=== PATIENT | male | born 1945 | race Caucasian/White ===

== ENCOUNTER 2016-10-21 08:31 | Outpatient (CLI) | payer MEDICARE, OTHER ==
--- NOTE | 2016-10-21 12:26 | MRI Report ---
EXAM: LEFT KNEE MRI WITHOUT CONTRAST EXAM DATE: 10/21/2016 09:44 AM. CLINICAL HISTORY: 2 months ago patient slipped going down stairs twisted left knee. COMPARISON: None. TECHNIQUE: Multiplanar, multisequence T1-weighted and fluid-sensitive sequences of the knee without c ontrast. Other: None. FINDINGS: Bones: There is marked marrow edema of the medial femoral and tibial condyles. There is subchondral c yst formation in the femoral trochlea.. Articular Cartilage: There is severe hyaline cartilage thinning in the medial compartment with region s of denuded bone. There is moderate thinning of the hyaline cartilage of the femoral trochlea. There is mild thinning of the lateral compartment cartilage. Medial Meniscus: There is a radial tear of the posterior root attachment. There is moderate extrusion . Lateral Meniscus: The lateral meniscus is intact. Cruciate Ligaments: The anterior and posterior cruciate ligaments are intact. Collateral Ligaments: The medial collateral and lateral collateral ligamentous structures are intact. Tendons: The quadriceps, patellar, semimembranosus, and popliteus tendons are unremarkable. Musculature: No edema or fatty atrophy. Other: Moderate-sized joint effusion.. No popliteal cyst. No loose bodies. The medial and lateral re tinacula are intact. The subcutaneous tissues and fat pads are unremarkable. IMPRESSION: 1. Radial tear of the posterior root attachment of the medial meniscus with medial extrusion. 2. Severe osteoarthritis of the medial compartment. 3. Mild lateral and patellofemoral compartment osteoarthritis 4. Moderate-sized joint effusion. [facility] MUSCULOSKELETAL RADIOLOGY SECTION Referring Provider Line: [phone] SITE ID: [id number]
== END 2016-10-21 08:32 | disposition home or self-care (01) ==
LOC: DI 08:31
PROVIDERS: ATTEND Family Medicine
DX: M25.562 Pain in left knee (principal); S83.242A Other tear of medial meniscus, current injury, left knee, initial encounter; M25.462 Effusion, left knee; M17.12 Unilateral primary osteoarthritis, left knee

== ENCOUNTER 2018-07-05 08:00 | Outpatient (CLI) | payer MEDICARE ==
[2018-07-05 12:27] LABS: BASOPHILS % (AUTO) 0.6 %; EOSINOPHILS # (AUTO) 0.2 10^3/uL (0.0-0.7); EOSINOPHILS % (AUTO) 3.2 %; HGB - HEMOGLOBIN 14.5 g/dL (14.0-18.0); LYMPHOCYTES % (AUTO) 17.9 %; MEAN CORPUSCULAR HEMOGLOBIN 32.3 pg (27.0-31.0); MEAN CORPUSCULAR VOLUME 94.9 fL (80.0-94.0); MEAN PLATELET VOLUME 9.5 fL (7.4-11.4); MONOCYTES # (AUTO) 0.7 10^3/uL (0.0-1.0); MONOCYTES % (AUTO) 12.1 %; NEUTROPHILS # (AUTO) 3.8 10^3/uL (1.5-6.6); NEUTROPHILS % (AUTO) 66.2 %; PLT - PLATELET COUNT 157 10^3/uL (130-450); RED CELL DISTRIBUTION WIDTH 13.5 % (12.0-15.0); WHITE BLOOD COUNT 5.8 x10^3/uL (4.8-10.8)
[2018-07-05 13:11] LABS: HB2 TOTAL 15.7 g/dL; HEMOGLOBIN A1C 0.65 g/dL; HEMOGLOBIN A1C % 5.9 % (4.6-6.2)
[2018-07-05 13:13] LABS: ALBUMIN 4.4 g/dL (3.2-5.5); ALKALINE PHOSPHATASE 56 IU/L (42-121); ALT ALANINE AMINOTRANSFERASE 24 IU/L (10-60); AST ASPARTATE AMINOTRANSFERASE 31 IU/L (10-42); BILIRUBIN,TOTAL 1.3 mg/dL (0.2-1.0); BUN - BLOOD UREA NITROGEN 18 mg/dL (6-20); CALCIUM 8.7 mg/dL (8.5-10.3); CARBON DIOXIDE - CO2 23 mmol/L (21-32); CHLORIDE 106 mmol/L (101-111); CHOL/HDL RATIO 4.3 (<5.0); CHOLESTEROL 175 mg/dL; CREATININE 0.8 mg/dL (0.6-1.2); GFR - MDRD 94 (>89); GLUCOSE 123 mg/dL (70-100); HDL CHOLESTEROL 41 mg/dL; LDL CHOLESTEROL,CALCULATED 116 mg/dL; LDL/HDL RATIO 2.8 (<3.6); SODIUM 137 mmol/L (135-145); TOTAL PROTEIN 6.6 g/dL (6.7-8.2); VLDL CHOLESTEROL 18 mg/dL
[2018-07-05 13:33] LABS: CREATININE,URINE 105.7 mg/dL; MICROALBUM/CREATININE RATIO,UR 8.5 ug/mg (<30.0); MICROALBUMIN,URINE 0.9 mg/dL (0-300.0)
== END 2018-07-05 08:01 | disposition home or self-care (01) ==
LOC: LAB.WCP 08:00
PROVIDERS: ATTEND Family Medicine
DX: E11.9 Type 2 diabetes mellitus without complications (principal); R97.20 Elevated prostate specific antigen [PSA]
CPT/HCPCS: 36415; 80053; 80061; 82043; 82570; 83036; 83721; 84153; 85025

== ENCOUNTER 2018-12-29 12:36 | Outpatient (CLI) | payer MEDICARE ==
[2018-12-29 13:11] LABS: PT - PROTHROMBIN TIME 46.8 secs (9.9-12.6)
[2018-12-29 13:17] LABS: INR 4.5 (0.8-1.2)
== END 2018-12-29 12:37 | disposition home or self-care (01) ==
LOC: LAB 12:36
PROVIDERS: ATTEND Pharmacist Pharmacist Clinician (PhC)/ Clinical Pharmacy Specialist
DX: Z79.01 Long term (current) use of anticoagulants (principal)
CPT/HCPCS: 36415; 85610

== ENCOUNTER 2019-01-17 12:27 | Outpatient (CLI) | payer MEDICARE ==
[2019-01-17 12:51] LABS: INR 3.1 (0.8-1.2); PT - PROTHROMBIN TIME 32.8 secs (9.9-12.6)
== END 2019-01-17 12:28 | disposition home or self-care (01) ==
LOC: LAB 12:27
PROVIDERS: ATTEND Pharmacist Pharmacist Clinician (PhC)/ Clinical Pharmacy Specialist
DX: Z79.01 Long term (current) use of anticoagulants (principal)
CPT/HCPCS: 36415; 85610

== ENCOUNTER 2019-02-07 08:39 | Outpatient (CLI) | payer MEDICARE ==
[2019-02-07 09:32] LABS: INR 3.8 (0.8-1.2)
== END 2019-02-07 08:40 | disposition home or self-care (01) ==
LOC: LAB 08:39
PROVIDERS: ATTEND Pharmacist Pharmacist Clinician (PhC)/ Clinical Pharmacy Specialist
DX: Z79.01 Long term (current) use of anticoagulants (principal)
CPT/HCPCS: 36415; 85610

== ENCOUNTER 2019-02-19 09:53 | Outpatient (CLI) | payer MEDICARE ==
[2019-02-19 10:10] LABS: PT - PROTHROMBIN TIME 21.7 secs (9.9-12.6)
== END 2019-02-19 09:54 | disposition home or self-care (01) ==
LOC: LAB 09:53
PROVIDERS: ATTEND Pharmacist Pharmacist Clinician (PhC)/ Clinical Pharmacy Specialist
DX: Z79.01 Long term (current) use of anticoagulants (principal)
CPT/HCPCS: 36415; 85610

== ENCOUNTER 2019-02-23 10:30 | Outpatient (CLI) | payer MEDICARE ==
[2019-02-23 11:03] LABS: INR 2.6 (0.8-1.2); PT - PROTHROMBIN TIME 28.1 secs (9.9-12.6)
== END 2019-02-23 10:31 | disposition home or self-care (01) ==
LOC: LAB 10:30
PROVIDERS: ATTEND Pharmacist Pharmacist Clinician (PhC)/ Clinical Pharmacy Specialist
DX: Z79.01 Long term (current) use of anticoagulants (principal)
CPT/HCPCS: 36415; 85610

== ENCOUNTER 2019-03-14 09:36 | Outpatient (CLI) | payer MEDICARE ==
[2019-03-14 10:19] LABS: INR 2.2 (0.8-1.2); PT - PROTHROMBIN TIME 23.9 secs (9.9-12.6)
== END 2019-03-14 09:37 | disposition home or self-care (01) ==
LOC: LAB 09:36
PROVIDERS: ATTEND Pharmacist Pharmacist Clinician (PhC)/ Clinical Pharmacy Specialist
DX: Z79.01 Long term (current) use of anticoagulants (principal)
CPT/HCPCS: 36415; 85610

== ENCOUNTER 2019-03-22 15:20 | Outpatient (CLI) | payer MEDICARE ==
[2019-03-22 15:41] LABS: INR 2.7 (0.8-1.2); PT - PROTHROMBIN TIME 28.7 secs (9.9-12.6)
== END 2019-03-22 15:21 | disposition home or self-care (01) ==
LOC: LAB 15:20
PROVIDERS: ATTEND Pharmacist Pharmacist Clinician (PhC)/ Clinical Pharmacy Specialist
DX: Z79.01 Long term (current) use of anticoagulants (principal)
CPT/HCPCS: 36415; 85610

== ENCOUNTER 2019-04-13 08:35 | Outpatient (CLI) | payer MEDICARE ==
[2019-04-13 09:04] LABS: INR 2.8 (0.8-1.2); PT - PROTHROMBIN TIME 30.2 secs (9.9-12.6)
== END 2019-04-13 08:36 | disposition home or self-care (01) ==
LOC: LAB 08:35
PROVIDERS: ATTEND Pharmacist Pharmacist Clinician (PhC)/ Clinical Pharmacy Specialist
DX: Z79.01 Long term (current) use of anticoagulants (principal)
CPT/HCPCS: 36415; 85610

== ENCOUNTER 2019-06-29 10:54 | Outpatient (CLI) | payer MEDICARE ==
[2019-06-29 11:22] LABS: PT - PROTHROMBIN TIME 32.5 secs (9.9-12.6)
== END 2019-06-29 10:55 | disposition home or self-care (01) ==
LOC: LAB 10:54
PROVIDERS: ATTEND Pharmacist
DX: Z79.01 Long term (current) use of anticoagulants (principal)
CPT/HCPCS: 36415; 85610

== ENCOUNTER 2019-08-29 09:25 | Outpatient (CLI) | payer MEDICARE ==
[2019-08-29 09:41] LABS: INR 3.8 (0.8-1.2); PT - PROTHROMBIN TIME 39.8 secs (9.9-12.6)
== END 2019-08-29 09:26 | disposition home or self-care (01) ==
LOC: LAB 09:25
PROVIDERS: ATTEND Pharmacist
DX: Z79.01 Long term (current) use of anticoagulants (principal)
CPT/HCPCS: 36415; 85610

== ENCOUNTER 2019-09-13 08:16 | Outpatient (CLI) | payer MEDICARE ==
[2019-09-13 08:34] LABS: INR 3.4 (0.8-1.2); PT - PROTHROMBIN TIME 35.9 secs (9.9-12.6)
== END 2019-09-13 08:17 | disposition home or self-care (01) ==
LOC: LAB 08:16
PROVIDERS: ATTEND Pharmacist
DX: Z79.01 Long term (current) use of anticoagulants (principal)
CPT/HCPCS: 36415; 85610

== ENCOUNTER 2019-10-05 08:22 | Outpatient (CLI) | payer MEDICARE ==
[2019-10-05 08:46] LABS: BASOPHILS % (AUTO) 0.8 %; EOSINOPHILS # (AUTO) 0.2 10^3/uL (0.0-0.7); EOSINOPHILS % (AUTO) 4.6 %; HGB - HEMOGLOBIN 14.9 g/dL (14.0-18.0); LYMPHOCYTES # (AUTO) 0.9 10^3/uL (1.5-3.5); LYMPHOCYTES % (AUTO) 17.3 %; MEAN CORPUSCULAR HEMOGLOBIN 32.9 pg (27.0-31.0); MEAN CORPUSCULAR HGB CONC 34.7 g/dL (32.0-36.0); MEAN CORPUSCULAR VOLUME 94.9 fL (80.0-94.0); MEAN PLATELET VOLUME 10.2 fL (7.4-11.4); MONOCYTES # (AUTO) 0.6 10^3/uL (0.0-1.0); MONOCYTES % (AUTO) 11.4 %; NEUTROPHILS # (AUTO) 3.5 10^3/uL (1.5-6.6); NEUTROPHILS % (AUTO) 65.5 %; PLT - PLATELET COUNT 156 10^3/uL (130-450); RED BLOOD COUNT 4.53 10^6/uL (4.70-6.10); RED CELL DISTRIBUTION WIDTH 12.6 % (12.0-15.0); WHITE BLOOD COUNT 5.3 x10^3/uL (4.8-10.8)
[2019-10-05 08:55] LABS: CREATININE,URINE 83.9 mg/dL; MICROALBUM/CREATININE RATIO,UR 14.3 ug/mg (<30.0); MICROALBUMIN,URINE 1.2 mg/dL (0-300.0)
[2019-10-05 09:01] LABS: HB2 TOTAL 15.4 g/dL; HEMOGLOBIN A1C 0.59 g/dL; HEMOGLOBIN A1C % 5.7 % (4.6-6.2)
[2019-10-05 09:08] LABS: ALBUMIN 4.7 g/dL (3.2-5.5); ALBUMIN/GLOBULIN RATIO 2.2 (1.0-2.2); ALKALINE PHOSPHATASE 67 IU/L (42-121); ALT ALANINE AMINOTRANSFERASE 30 IU/L (10-60); AST ASPARTATE AMINOTRANSFERASE 46 IU/L (10-42); BILIRUBIN,TOTAL 1.4 mg/dL (0.2-1.0); BUN - BLOOD UREA NITROGEN 14 mg/dL (6-20); CALCIUM 9.3 mg/dL (8.5-10.3); CARBON DIOXIDE - CO2 27 mmol/L (21-32); CHLORIDE 103 mmol/L (101-111); CHOL/HDL RATIO 3.5 (<5.0); CHOLESTEROL 149 mg/dL; CREATININE 0.8 mg/dL (0.6-1.2); GLUCOSE 112 mg/dL (70-100); HDL CHOLESTEROL 42 mg/dL; LDL CHOLESTEROL,CALCULATED 93 mg/dL; LDL/HDL RATIO 2.2 (<3.6); SODIUM 138 mmol/L (135-145); TOTAL PROTEIN 6.8 g/dL (6.7-8.2); VLDL CHOLESTEROL 14 mg/dL
== END 2019-10-05 08:23 | disposition home or self-care (01) ==
LOC: LAB 08:22
PROVIDERS: ATTEND Family Medicine
DX: E11.9 Type 2 diabetes mellitus without complications (principal); E78.5 Hyperlipidemia, unspecified; Z12.5 Encounter for screening for malignant neoplasm of prostate
CPT/HCPCS: 36415; 80053; 80061; 82043; 82570; 83036; 84443; 85025; G0103; 83721; 84153

== ENCOUNTER 2019-10-17 11:11 | Outpatient (CLI) | payer MEDICARE ==
[2019-10-17 11:28] LABS: INR 4.1 (0.8-1.2); PT - PROTHROMBIN TIME 43.2 secs (9.9-12.6)
== END 2019-10-17 11:12 | disposition home or self-care (01) ==
LOC: LAB 11:11
PROVIDERS: ATTEND Pharmacist
DX: Z79.01 Long term (current) use of anticoagulants (principal)
CPT/HCPCS: 36415; 85610

== ENCOUNTER 2019-11-01 08:29 | Outpatient (CLI) | payer MEDICARE ==
[2019-11-01 08:43] LABS: INR 2.2 (0.8-1.2); PT - PROTHROMBIN TIME 23.3 secs (9.9-12.6)
== END 2019-11-01 08:30 | disposition home or self-care (01) ==
LOC: LAB 08:29
PROVIDERS: ATTEND Pharmacist
DX: Z79.01 Long term (current) use of anticoagulants (principal)
CPT/HCPCS: 36415; 85610

== ENCOUNTER 2019-11-20 08:46 | Outpatient (CLI) | payer MEDICARE ==
[2019-11-20 09:34] LABS: INR 3.7 (0.8-1.2); PT - PROTHROMBIN TIME 38.6 secs (9.9-12.6)
== END 2019-11-20 08:47 | disposition home or self-care (01) ==
LOC: LAB 08:46
PROVIDERS: ATTEND Pharmacist
DX: Z79.01 Long term (current) use of anticoagulants (principal)
CPT/HCPCS: 36415; 85610

== ENCOUNTER 2019-11-30 08:45 | Outpatient (CLI) | payer MEDICARE ==
[2019-11-30 09:23] LABS: INR 2.4 (0.8-1.2); PT - PROTHROMBIN TIME 25.2 secs (9.9-12.6)
== END 2019-11-30 08:46 | disposition home or self-care (01) ==
LOC: LAB 08:45
PROVIDERS: ATTEND Pharmacist
DX: Z79.01 Long term (current) use of anticoagulants (principal)
CPT/HCPCS: 36415; 85610

== ENCOUNTER 2019-12-07 12:59 | Outpatient (CLI) | payer MEDICARE ==
[2019-12-07 13:13] LABS: INR 3.4 (0.8-1.2); PT - PROTHROMBIN TIME 35.1 secs (9.9-12.6)
== END 2019-12-07 13:00 | disposition home or self-care (01) ==
LOC: LAB 12:59
PROVIDERS: ATTEND Pharmacist
DX: Z79.01 Long term (current) use of anticoagulants (principal)
CPT/HCPCS: 36415; 85610

== ENCOUNTER 2019-12-28 09:49 | Outpatient (CLI) | payer MEDICARE ==
[2019-12-28 10:02] LABS: INR 2.8 (0.8-1.2); PT - PROTHROMBIN TIME 29.5 secs (9.9-12.6)
== END 2019-12-28 09:50 | disposition home or self-care (01) ==
LOC: LAB 09:49
PROVIDERS: ATTEND Pharmacist
DX: Z79.01 Long term (current) use of anticoagulants (principal)
CPT/HCPCS: 36415; 85610

== ENCOUNTER 2020-01-21 13:35 | Outpatient (CLI) | payer MEDICARE ==
[2020-01-21 14:07] LABS: INR 3.4 (0.8-1.2); PT - PROTHROMBIN TIME 34.8 secs (9.9-12.6)
== END 2020-01-21 13:36 | disposition home or self-care (01) ==
LOC: LAB 13:35
PROVIDERS: ATTEND Pharmacist
DX: Z79.01 Long term (current) use of anticoagulants (principal)
CPT/HCPCS: 85610

== ENCOUNTER 2020-02-25 10:27 | Outpatient (CLI) | payer MEDICARE ==
[2020-02-25 10:58] LABS: INR 2.7 (0.8-1.2); PT - PROTHROMBIN TIME 28.2 secs (9.9-12.6)
== END 2020-02-25 10:28 | disposition home or self-care (01) ==
LOC: LAB 10:27
PROVIDERS: ATTEND Pharmacist
DX: Z51.81 Encounter for therapeutic drug level monitoring (principal); Z79.01 Long term (current) use of anticoagulants
CPT/HCPCS: 85610

== ENCOUNTER 2020-03-27 08:00 | Outpatient (CLI) | payer MEDICARE ==
[2020-03-27 10:43] LABS: INR 3.8 (0.8-1.2); PT - PROTHROMBIN TIME 38.8 secs (9.9-12.6)
== END 2020-03-27 23:59 | disposition home or self-care (01) ==
LOC: LAB 08:00
PROVIDERS: ATTEND Pharmacist
DX: Z79.01 Long term (current) use of anticoagulants (principal)
CPT/HCPCS: 36415; 85610

== ENCOUNTER 2020-04-14 10:08 | Outpatient (CLI) | payer MEDICARE ==
[2020-04-14 11:08] LABS: INR 3.1 (0.8-1.2); PT - PROTHROMBIN TIME 32.6 secs (9.9-12.6)
== END 2020-04-14 10:09 | disposition home or self-care (01) ==
LOC: LAB 10:08
PROVIDERS: ATTEND Pharmacist
DX: Z79.01 Long term (current) use of anticoagulants (principal)
CPT/HCPCS: 36415; 85610

== ENCOUNTER 2020-05-16 09:44 | Outpatient (CLI) | payer MEDICARE ==
[2020-05-16 10:06] LABS: INR 2.1 (0.8-1.2); PT - PROTHROMBIN TIME 22.5 secs (9.9-12.6)
== END 2020-05-16 09:45 | disposition home or self-care (01) ==
LOC: LAB 09:44
PROVIDERS: ATTEND Pharmacist
DX: Z79.01 Long term (current) use of anticoagulants (principal)
CPT/HCPCS: 36415; 85610

== ENCOUNTER 2020-05-30 09:30 | Outpatient (CLI) | payer MEDICARE ==
[2020-05-30 09:51] LABS: INR 3.2 (0.8-1.2); PT - PROTHROMBIN TIME 32.9 secs (9.9-12.6)
== END 2020-05-30 09:31 | disposition home or self-care (01) ==
LOC: LAB 09:30
PROVIDERS: ATTEND Pharmacist
DX: Z79.01 Long term (current) use of anticoagulants (principal)
CPT/HCPCS: 36415; 85610

== ENCOUNTER 2020-06-19 10:26 | Outpatient (CLI) | payer MEDICARE | END 2020-06-19 10:27 | disposition home or self-care (01) | LOC: LAB 10:26 | PROVIDERS: ATTEND Internal Medicine Cardiovascular Disease | DX: Z95.2 Presence of prosthetic heart valve (principal) | CPT/HCPCS: 36416; 85610 ==

== ENCOUNTER 2020-07-04 09:49 | Outpatient (CLI) | payer MEDICARE ==
[2020-07-04 10:23] LABS: INR 3.6 (0.8-1.2)
== END 2020-07-04 09:50 | disposition home or self-care (01) ==
LOC: LAB 09:49
PROVIDERS: ATTEND Pharmacist
DX: Z79.01 Long term (current) use of anticoagulants (principal)
CPT/HCPCS: 36415; 85610

== ENCOUNTER 2020-07-18 09:18 | Outpatient (CLI) | payer MEDICARE ==
[2020-07-18 09:43] LABS: INR 2.3 (0.8-1.2); PT - PROTHROMBIN TIME 24.7 secs (9.9-12.6)
== END 2020-07-18 09:19 | disposition home or self-care (01) ==
LOC: LAB 09:18
PROVIDERS: ATTEND Pharmacist
DX: Z79.01 Long term (current) use of anticoagulants (principal)
CPT/HCPCS: 36415; 85610

== ENCOUNTER 2020-07-31 08:17 | Outpatient (CLI) | payer MEDICARE | END 2020-07-31 08:18 | disposition home or self-care (01) | LOC: LAB 08:17 | PROVIDERS: ATTEND Internal Medicine Cardiovascular Disease | DX: Z95.2 Presence of prosthetic heart valve (principal) | CPT/HCPCS: 36416; 85610 ==

== ENCOUNTER 2020-08-15 07:57 | Outpatient (CLI) | payer MEDICARE ==
[2020-08-15 08:22] LABS: BASOPHILS % (AUTO) 0.8 %; EOSINOPHILS # (AUTO) 0.2 10^3/uL (0.0-0.7); EOSINOPHILS % (AUTO) 3.7 %; HCT - HEMATOCRIT 44.4 % (42.0-52.0); HGB - HEMOGLOBIN 14.9 g/dL (14.0-18.0); LYMPHOCYTES # (AUTO) 0.9 10^3/uL (1.5-3.5); LYMPHOCYTES % (AUTO) 18.5 %; MEAN CORPUSCULAR HEMOGLOBIN 32.5 pg (27.0-31.0); MEAN CORPUSCULAR HGB CONC 33.6 g/dL (32.0-36.0); MEAN CORPUSCULAR VOLUME 96.7 fL (80.0-94.0); MEAN PLATELET VOLUME 10.4 fL (7.4-11.4); MONOCYTES # (AUTO) 0.6 10^3/uL (0.0-1.0); MONOCYTES % (AUTO) 11.4 %; NEUTROPHILS # (AUTO) 3.2 10^3/uL (1.5-6.6); NEUTROPHILS % (AUTO) 65.2 %; PLT - PLATELET COUNT 151 10^3/uL (130-450); RED BLOOD COUNT 4.59 10^6/uL (4.70-6.10); RED CELL DISTRIBUTION WIDTH 12.6 % (12.0-15.0); WHITE BLOOD COUNT 4.9 x10^3/uL (4.8-10.8)
[2020-08-15 08:36] LABS: ALBUMIN 4.5 g/dL (3.2-5.5); ALBUMIN/GLOBULIN RATIO 1.9 (1.0-2.2); ALKALINE PHOSPHATASE 64 IU/L (42-121); ALT ALANINE AMINOTRANSFERASE 28 IU/L (10-60); AST ASPARTATE AMINOTRANSFERASE 36 IU/L (10-42); BILIRUBIN,TOTAL 1.3 mg/dL (0.2-1.0); BUN - BLOOD UREA NITROGEN 16 mg/dL (6-20); CALCIUM 8.9 mg/dL (8.5-10.3); CARBON DIOXIDE - CO2 26 mmol/L (21-32); CHLORIDE 106 mmol/L (101-111); CHOL/HDL RATIO 3.6 (<5.0); CHOLESTEROL 156 mg/dL; CREATININE 0.8 mg/dL (0.6-1.2); GFR - MDRD 94 (>89); GLUCOSE 125 mg/dL (70-100); HDL CHOLESTEROL 43 mg/dL; LDL CHOLESTEROL,CALCULATED 103 mg/dL; LDL/HDL RATIO 2.4 (<3.6); POTASSIUM 4.8 mmol/L (3.5-5.0); SODIUM 138 mmol/L (135-145); TOTAL PROTEIN 6.9 g/dL (6.7-8.2); TRIGLYCERIDES 49 mg/dL; VLDL CHOLESTEROL 10 mg/dL
[2020-08-15 11:58] LABS: ESTIMATED AVERAGE GLUCOSE 120 mg/dL (70-100); HEMOGLOBIN A1c% 5.8 % (4.27-6.07)
== END 2020-08-15 07:58 | disposition home or self-care (01) ==
LOC: LAB 07:57
PROVIDERS: ATTEND Family Medicine
DX: R94.5 Abnormal results of liver function studies (principal); E78.5 Hyperlipidemia, unspecified; E11.9 Type 2 diabetes mellitus without complications
CPT/HCPCS: 36415; 80053; 80061; 83036; 83721; 85025

== ENCOUNTER 2020-09-11 09:18 | Outpatient (CLI) | payer MEDICARE ==
[2020-09-11 10:01] LABS: INR 4.1 (0.8-1.2); PT - PROTHROMBIN TIME 42.4 secs (9.9-12.6)
== END 2020-09-11 09:19 | disposition home or self-care (01) ==
LOC: LAB 09:18
PROVIDERS: ATTEND Pharmacist
DX: Z79.01 Long term (current) use of anticoagulants (principal)
CPT/HCPCS: 36415; 85610

== ENCOUNTER 2020-09-25 10:46 | Outpatient (CLI) | payer MEDICARE | END 2020-09-25 10:47 | disposition home or self-care (01) | LOC: LAB 10:46 | PROVIDERS: ATTEND Internal Medicine Cardiovascular Disease | DX: Z95.2 Presence of prosthetic heart valve (principal) | CPT/HCPCS: 36416; 85610 ==

== ENCOUNTER 2020-10-30 08:49 | Outpatient (CLI) | payer MEDICARE | END 2020-10-30 08:50 | disposition home or self-care (01) | LOC: LAB 08:49 | PROVIDERS: ATTEND Internal Medicine Cardiovascular Disease | DX: Z95.2 Presence of prosthetic heart valve (principal) | CPT/HCPCS: 36416; 85610 ==

== ENCOUNTER 2020-11-04 08:52 | Outpatient (CLI) | payer MEDICARE | END 2020-11-04 08:53 | disposition home or self-care (01) | LOC: LAB 08:52 | PROVIDERS: ATTEND Internal Medicine Cardiovascular Disease | DX: Z95.2 Presence of prosthetic heart valve (principal) | CPT/HCPCS: 36416; 85610 ==

== ENCOUNTER 2020-11-14 12:02 | Outpatient (CLI) | payer MEDICARE | END 2020-11-14 23:59 | disposition home or self-care (01) | LOC: LAB 12:02 | PROVIDERS: ATTEND Internal Medicine Cardiovascular Disease | DX: Z95.2 Presence of prosthetic heart valve (principal) | CPT/HCPCS: 36416; 85610 ==

== ENCOUNTER 2020-12-11 11:41 | Outpatient (CLI) | payer MEDICARE | END 2020-12-11 11:42 | disposition home or self-care (01) | LOC: LAB 11:41 | PROVIDERS: ATTEND Family Medicine | DX: Z95.2 Presence of prosthetic heart valve (principal) | CPT/HCPCS: 36416; 85610 ==

== ENCOUNTER 2021-01-27 10:23 | Outpatient (CLI) | payer MEDICARE | END 2021-01-27 10:24 | disposition home or self-care (01) | LOC: LAB 10:23 | PROVIDERS: ATTEND Internal Medicine Cardiovascular Disease | DX: Z95.2 Presence of prosthetic heart valve (principal) | CPT/HCPCS: 36416; 85610 ==

== ENCOUNTER 2021-03-27 11:23 | Outpatient (CLI) | payer MEDICARE, OTHER | END 2021-03-27 11:24 | disposition home or self-care (01) | LOC: LAB 11:23 | PROVIDERS: ATTEND Internal Medicine Cardiovascular Disease | DX: Z95.2 Presence of prosthetic heart valve (principal) | CPT/HCPCS: 36416; 85610 ==

== ENCOUNTER 2021-04-14 09:49 | Outpatient (CLI) | payer MEDICARE | END 2021-04-14 09:50 | disposition home or self-care (01) | LOC: LAB 09:49 | PROVIDERS: ATTEND Internal Medicine Cardiovascular Disease | DX: Z95.2 Presence of prosthetic heart valve (principal) | CPT/HCPCS: 36416; 85610 ==

== ENCOUNTER 2021-05-20 09:25 | Outpatient (CLI) | payer MEDICARE | END 2021-05-20 09:26 | disposition home or self-care (01) | LOC: LAB 09:25 | PROVIDERS: ATTEND Internal Medicine Cardiovascular Disease | DX: Z95.2 Presence of prosthetic heart valve (principal) | CPT/HCPCS: 36416; 85610 ==

== ENCOUNTER 2021-07-01 09:11 | Outpatient (CLI) | payer MEDICARE | END 2021-07-01 09:12 | disposition home or self-care (01) | LOC: LAB 09:11 | PROVIDERS: ATTEND Internal Medicine Cardiovascular Disease | DX: Z95.2 Presence of prosthetic heart valve (principal) | CPT/HCPCS: 36416; 85610 ==

== ENCOUNTER 2021-08-19 09:09 | Outpatient (CLI) | payer MEDICARE | END 2021-08-19 09:10 | disposition home or self-care (01) | LOC: LAB 09:09 | PROVIDERS: ATTEND Internal Medicine Cardiovascular Disease | DX: Z95.2 Presence of prosthetic heart valve (principal) | CPT/HCPCS: 36416; 85610 ==

== ENCOUNTER 2021-11-25 10:25 | Outpatient (CLI) | payer MEDICARE | END 2021-11-25 10:26 | disposition home or self-care (01) | LOC: LAB 10:25 | PROVIDERS: ATTEND Internal Medicine Cardiovascular Disease | DX: Z95.2 Presence of prosthetic heart valve (principal) | CPT/HCPCS: 36416; 85610 ==

== ENCOUNTER 2021-12-09 14:31 | Outpatient (CLI) | payer MEDICARE | END 2021-12-09 14:32 | disposition home or self-care (01) | LOC: LAB 14:31 | PROVIDERS: ATTEND Internal Medicine Cardiovascular Disease | DX: Z95.2 Presence of prosthetic heart valve (principal) | CPT/HCPCS: 36416; 85610 ==

== ENCOUNTER 2021-12-11 09:23 | Outpatient (CLI) | payer MEDICARE | END 2021-12-11 09:24 | disposition home or self-care (01) | LOC: LAB 09:23 | PROVIDERS: ATTEND Internal Medicine Cardiovascular Disease | DX: Z95.2 Presence of prosthetic heart valve (principal) | CPT/HCPCS: 36416; 85610 ==

== ENCOUNTER 2022-01-13 11:02 | Outpatient (CLI) | payer MEDICARE | END 2022-01-13 11:03 | disposition home or self-care (01) | LOC: LAB 11:02 | PROVIDERS: ATTEND Internal Medicine Cardiovascular Disease | DX: Z95.2 Presence of prosthetic heart valve (principal) | CPT/HCPCS: 36416; 85610 ==

== ENCOUNTER 2022-02-17 09:56 | Outpatient (CLI) | payer MEDICARE | END 2022-02-17 09:57 | disposition home or self-care (01) | LOC: LAB 09:56 | PROVIDERS: ATTEND Internal Medicine Cardiovascular Disease | DX: Z95.2 Presence of prosthetic heart valve (principal) | CPT/HCPCS: 36416; 85610 ==

== ENCOUNTER 2022-04-01 08:24 | Outpatient (CLI) | payer MEDICARE | END 2022-04-01 08:25 | disposition home or self-care (01) | LOC: LAB 08:24 | PROVIDERS: ATTEND Internal Medicine Cardiovascular Disease | DX: Z95.2 Presence of prosthetic heart valve (principal) | CPT/HCPCS: 36416; 85610 ==

== ENCOUNTER 2022-04-21 09:51 | Outpatient (CLI) | payer MEDICARE | END 2022-04-21 09:52 | disposition home or self-care (01) | LOC: LAB 09:51 | PROVIDERS: ATTEND Internal Medicine Cardiovascular Disease | DX: Z95.2 Presence of prosthetic heart valve (principal) | CPT/HCPCS: 36416; 85610 ==

== ENCOUNTER 2022-06-03 08:35 | Outpatient (CLI) | payer MEDICARE | END 2022-06-03 08:36 | disposition home or self-care (01) | LOC: LAB 08:35 | PROVIDERS: ATTEND Internal Medicine Cardiovascular Disease | DX: Z95.2 Presence of prosthetic heart valve (principal) | CPT/HCPCS: 36416; 85610 ==

== ENCOUNTER 2022-08-04 09:14 | Outpatient (CLI) | payer MEDICARE | END 2022-08-04 09:15 | disposition home or self-care (01) | LOC: LAB 09:14 | PROVIDERS: ATTEND Internal Medicine Cardiovascular Disease | DX: Z95.2 Presence of prosthetic heart valve (principal) | CPT/HCPCS: 36416; 85610 ==

== ENCOUNTER 2022-10-05 08:19 | Outpatient (CLI) | payer MEDICARE | END 2022-10-05 08:20 | disposition home or self-care (01) | LOC: LAB 08:19 | PROVIDERS: ATTEND Internal Medicine Cardiovascular Disease | DX: Z95.2 Presence of prosthetic heart valve (principal) | CPT/HCPCS: 36416; 85610 ==

== ENCOUNTER 2022-10-12 09:13 | Outpatient (CLI) | payer MEDICARE | END 2022-10-12 09:14 | disposition home or self-care (01) | LOC: LAB 09:13 | PROVIDERS: ATTEND Internal Medicine Cardiovascular Disease | DX: Z95.2 Presence of prosthetic heart valve (principal) | CPT/HCPCS: 36416; 85610 ==

== ENCOUNTER 2022-10-27 08:40 | Outpatient (CLI) | payer MEDICARE | END 2022-10-27 08:41 | disposition home or self-care (01) | LOC: LAB 08:40 | PROVIDERS: ATTEND Internal Medicine Cardiovascular Disease | DX: Z95.2 Presence of prosthetic heart valve (principal) | CPT/HCPCS: 36416; 85610 ==

== ENCOUNTER 2022-11-25 08:47 | Outpatient (CLI) | payer MEDICARE | END 2022-11-25 08:48 | disposition home or self-care (01) | LOC: LAB 08:47 | PROVIDERS: ATTEND Internal Medicine Cardiovascular Disease | DX: Z95.2 Presence of prosthetic heart valve (principal) | CPT/HCPCS: 36416; 85610 ==

== ENCOUNTER 2022-12-09 13:47 | Outpatient (CLI) | payer MEDICARE | END 2022-12-09 13:48 | disposition home or self-care (01) | LOC: LAB 13:47 | PROVIDERS: ATTEND Internal Medicine Cardiovascular Disease | DX: Z95.2 Presence of prosthetic heart valve (principal) | CPT/HCPCS: 36416; 85610 ==

== ENCOUNTER 2023-01-26 09:18 | Outpatient (CLI) | payer MEDICARE | END 2023-01-26 09:19 | disposition home or self-care (01) | LOC: LAB 09:18 | PROVIDERS: ATTEND Internal Medicine Cardiovascular Disease | DX: Z95.2 Presence of prosthetic heart valve (principal) | CPT/HCPCS: 36416; 85610 ==

== ENCOUNTER 2023-02-03 08:10 | Outpatient (CLI) | payer MEDICARE | END 2023-02-03 08:11 | disposition home or self-care (01) | LOC: LAB 08:10 | PROVIDERS: ATTEND Internal Medicine Cardiovascular Disease | DX: Z09 Encounter for follow-up examination after completed treatment for conditions other than malignant neoplasm (principal); Z95.2 Presence of prosthetic heart valve | CPT/HCPCS: 36416; 85610 ==

== ENCOUNTER 2023-02-10 08:34 | Outpatient (CLI) | payer MEDICARE | END 2023-02-10 08:35 | disposition home or self-care (01) | LOC: LAB 08:34 | PROVIDERS: ATTEND Internal Medicine Cardiovascular Disease | DX: Z09 Encounter for follow-up examination after completed treatment for conditions other than malignant neoplasm (principal); Z95.2 Presence of prosthetic heart valve | CPT/HCPCS: 36416; 85610 ==

== ENCOUNTER 2023-03-15 10:35 | Outpatient (CLI) | payer MEDICARE | END 2023-03-15 10:36 | disposition home or self-care (01) | LOC: LAB 10:35 | PROVIDERS: ATTEND Internal Medicine Cardiovascular Disease | DX: Z09 Encounter for follow-up examination after completed treatment for conditions other than malignant neoplasm (principal); Z95.2 Presence of prosthetic heart valve | CPT/HCPCS: 36416; 85610 ==

== ENCOUNTER 2023-03-24 08:17 | Outpatient (CLI) | payer MEDICARE | END 2023-03-24 08:18 | disposition home or self-care (01) | LOC: LAB 08:17 | PROVIDERS: ATTEND Internal Medicine Cardiovascular Disease | DX: Z09 Encounter for follow-up examination after completed treatment for conditions other than malignant neoplasm (principal); Z95.2 Presence of prosthetic heart valve | CPT/HCPCS: 36416; 85610 ==

== ENCOUNTER 2023-04-01 09:18 | Outpatient (CLI) | payer MEDICARE | END 2023-04-01 09:19 | disposition home or self-care (01) | LOC: LAB 09:18 | PROVIDERS: ATTEND Internal Medicine Cardiovascular Disease | DX: Z09 Encounter for follow-up examination after completed treatment for conditions other than malignant neoplasm (principal); Z95.2 Presence of prosthetic heart valve | CPT/HCPCS: 36416; 85610 ==

== ENCOUNTER 2023-04-21 09:16 | Outpatient (CLI) | payer MEDICARE | END 2023-04-21 09:17 | disposition home or self-care (01) | LOC: LAB 09:16 | PROVIDERS: ATTEND Internal Medicine Cardiovascular Disease | DX: Z09 Encounter for follow-up examination after completed treatment for conditions other than malignant neoplasm (principal); Z95.2 Presence of prosthetic heart valve | CPT/HCPCS: 36416; 85610 ==

== ENCOUNTER 2023-05-27 10:05 | Outpatient (CLI) | payer MEDICARE | END 2023-05-27 10:06 | disposition home or self-care (01) | LOC: LAB 10:05 | PROVIDERS: ATTEND Internal Medicine Cardiovascular Disease | DX: Z95.2 Presence of prosthetic heart valve (principal) | CPT/HCPCS: 36416; 85610 ==

== ENCOUNTER 2023-07-13 11:03 | Outpatient (CLI) | payer MEDICARE | END 2023-07-13 11:04 | disposition home or self-care (01) | LOC: LAB 11:03 | PROVIDERS: ATTEND Internal Medicine Cardiovascular Disease | DX: Z95.2 Presence of prosthetic heart valve (principal) | CPT/HCPCS: 36416; 85610 ==

== ENCOUNTER 2023-09-09 07:27 | Outpatient (CLI) | payer MEDICARE | END 2023-09-09 07:28 | disposition home or self-care (01) | LOC: LAB 07:27 | PROVIDERS: ATTEND Internal Medicine Cardiovascular Disease | DX: Z09 Encounter for follow-up examination after completed treatment for conditions other than malignant neoplasm (principal); Z95.2 Presence of prosthetic heart valve | CPT/HCPCS: 85610 ==

== ENCOUNTER 2023-11-01 09:21 | Outpatient (CLI) | payer MEDICARE | END 2023-11-01 09:22 | disposition home or self-care (01) | LOC: LAB 09:21 | PROVIDERS: ATTEND Internal Medicine Cardiovascular Disease | DX: Z09 Encounter for follow-up examination after completed treatment for conditions other than malignant neoplasm (principal); Z95.2 Presence of prosthetic heart valve | CPT/HCPCS: 36416; 85610 ==